=== PATIENT | female | born 1955 | race African-American/Black ===

== ENCOUNTER 2021-04-02 18:32 | Emergency (ER) | payer OTHER ==
[~2021-04-02] VITALS: Ht 167.6 cm; Wt 89.8 kg
[2021-04-02] MEDS ORDERED: ABILIFY MAINTE300 M1 IM (19:26)
[2021-04-02 20:14] LABS: HEMATOCRIT 38.1 % (37.0-47.0); HEMOGLOBIN 12.3 gm/dL (12.0-15.0); MCH 26.7 pg (26.0-34.0); MCHC 32.1 g/dL (28.0-37.0); MCV 83.2 fL (80.0-100.0); PLATELET COUNT 285 thou/uL (150-400); RBC 4.59 mil/uL (4.20-5.00); WBC 11.6 thou/uL (4.0-11.0)
[2021-04-02 20:57] LABS: URINE BILIRUBIN NEGATIVE (Negative); URINE BLOOD 2+ (Negative); URINE CLARITY CLOUDY; URINE COLOR YELLOW; URINE GLUCOSE-RANDOM* NEGATIVE (Negative); URINE KETONES NEGATIVE (Negative); URINE LEUKOCYTES-REFLEX 2+ (Negative); URINE NITRITE-REFLEX NEGATIVE (Negative); URINE PROTEIN (DIPSTICK) TRACE (Negative); URINE SPECIFIC GRAVITY >= 1.030 (1.005-1.035); URINE UROBILINOGEN 0.2 E.U./dl (0.2-1.0)
[2021-04-02 21:05] LABS: ANION GAP 11 mmol/L (7-16); BUN 10 mg/dL (7-18); CHLORIDE 107 mmol/L (98-107); CO2 26 mmol/L (21-32); GLUCOSE 106 mg/dL (74-106); POTASSIUM 3.8 mmol/L (3.5-5.1); SODIUM 144 mmol/L (136-145)
[2021-04-02 21:14] LABS: ABSOLUTE NEUTROPHILS 6.3 thou/uL (1.4-8.2)
[2021-04-02 21:15] LABS: ALBUMIN 3.6 g/dL (3.4-5.0); SGOT 15 U/L (15-37); SGPT 21 U/L (30-65); TOTAL BILIRUBIN 0.5 mg/dL (0.2-1.0); TOTAL PROTEIN 7.3 g/dL (6.4-8.2); TROPONIN-I <0.06 ng/mL (<0.06)
[2021-04-02 21:17] LABS: ANISOCYTOSIS 2+
[2021-04-02 21:19] LABS: SQUAMOUS >10 Many /LPF (0-3); YEAST-REFLEX Present (None Seen)
[2021-04-02 21:20] LABS: AMORPHOUS URATES Few /LPF (None Seen); BACTERIA-REFLEX 1-9 Few /HPF (None Seen); CASTS None Seen /LPF (None Seen); URINE RBC 1-2 Rare /HPF (NONE SEEN)
[2021-04-02] MEDS ORDERED: DIFLUCAN150 MG PO (21:44)
[2021-04-02 22:12] VITALS: BP 151/59
--- NOTE | 2021-04-03 07:14 | EKG ---
[address] [address] ELECTROCARDIOGRAM REPORT Name: ABHIJIT WHARTON [id number] Admission: 04/02/21 Attend Phys: Discharge: 04/02/21 Date of : 59 Report #: [id number] [facility] ED Test Date: 2021-04-02 Test Time: 19:56:59 Pat Name: ABHIJIT WHARTON Department: Room: Gender: F Detective Sergeant: [email or web address] : 1955 Requested By: Sherine Johnson Order Number: [id number] MD: Fernando Johnson Measurements Intervals [place] Rate: 60 P: 52 PA: 155 QRS: 48 QRSD: 82 T: 4 QT: 392 QTc: 392 Interpretive Statements Sinus rhythm Borderline T wave abnormalities No previous ECG available for comparison Electronically Signed On 04-03-2021 7:14:06 CDT by Fernando Johnson [email or web address] <ELECTRONICALLY SIGNED> By: Fernando Johnson MD, [facility] 04/03/2114 55 55 Fernando Johnson MD, FACC /EPI
== END 2021-04-02 22:13 | disposition home or self-care (01) ==
LOC: ER 18:32
PROVIDERS: Physician Assistant
DX: N39.0 Urinary tract infection, site not specified (principal); B37.3 Candidiasis of vulva and vagina; R42 Dizziness and giddiness; I10 Essential (primary) hypertension; Z88.2 Allergy status to sulfonamides; Z90.710 Acquired absence of both cervix and uterus; Z90.49 Acquired absence of other specified parts of digestive tract